=== PATIENT | male | born 1960 | race Hispanic/Latino ===

== ENCOUNTER → 2020-02-08 | Day surgery (SDC) | payer OTHER ==
[2020-02-03 16:48] LABS: BASOPHILS # (AUTO) 0.1 (0.0-0.1); BASOPHILS % 0.8 % (0.0-1.0); EOSINOPHILS # (AUTO) 0.2 (0.0-0.4); HEMATOCRIT 41.2 % (38.2-49.6); HEMOGLOBIN 13.2 g/dL (14.0-18.0); LYMPHOCYTES # (AUTO) 2.7 (1.0-3.2); LYMPHOCYTES % 26.7 % (18.0-39.1); MEAN CORPUSCULAR HEMOGLOBIN 28.3 pg (28-32); MEAN CORPUSCULAR VOLUME 88.4 fL (81-99); MONOCYTES # (AUTO) 0.6 (0.2-0.8); MONOCYTES % 6.4 % (4.4-11.3); NEUTROPHILS # (AUTO) 6.3 (2.1-6.9); NEUTROPHILS % 63.8 % (38.7-80.0); PLATELET COUNT 290 x10e3/uL (140-360); RED BLOOD COUNT 4.66 x10e6/uL (4.3-5.7); RED CELL DISTRIBUTION WIDTH 15.1 % (11.7-14.4)
[~2020-02-08] MED LIST: AMITIZA24 MCG PO; ASMANEX 220 MCG INH; CENTRUM ULTRA1 EAC1 PO; FUROSEMIDE40 MG PO; GLIPIZIDE ER5 MG PO; HYDRALAZINE HCL25 MG PO; LIDOCAINE HCL 2% LOCAL INJ 5 ML SDV VIAL INJ ONE; LIPITOR10 MG PO; LOSARTAN POTAS100 MG PO; MIDAZOLAM HCL 2 MG/2 ML VIAL ONE; MYRBETRIQ50 MG PO; PROPOFOL IV EMULSION 10 MG/ML 20 ML VIAL ONE; TESTOSTERONE60 GM TOP; VASOTEC5 MG PO; VITAMIN D310 MCG PO; Z CALAN PO; Z.0.ALLOPURINOL300 M PO; Z.0.FUROSEMIDE20 MG PO; ZETIA10 MG PO
[2020-02-08 10:10] VITALS: BP 143/71
--- NOTE | 2020-02-08 11:10 | Operative Report ---
DATE OF PROCEDURE: 02/08/2020 SURGEON: Sammy Ching MD PROCEDURE PERFORMED: Esophagogastroduodenoscopy. PREOPERATIVE DIAGNOSES: Abdominal pain and nausea. POSTOPERATIVE DIAGNOSES: Gastric ulcer, bile reflux gastritis, hiatal hernia with a reflux esophagitis. PREOPERATIVE MEDICATIONS: Consisted of general anesthesia. DESCRIPTION OF PROCEDURE: Using [employer] video gastroscope, it was inserted into the patient's oropharynx and advanced to hypopharynx and down to the esophagus. The mucosa present in the esophagus was normal until we got down to the GE junction. This was at 38 cm. There was evidence of a reflux esophagitis above the GE junction. Biopsies were obtained. Right below that, there was a fixed hiatal hernia down from 39 down to 41 cm. The stomach was entered and insufflated with air. The mucosa spreading cardia, fundus, body, and antrum was viewed. There was evidence of a bile reflux gastritis throughout the entire stomach and bile was suctioned out of the stomach. Down at the body of stomach, there was a gastric ulcer. This area was biopsied as well as biopsies obtaining in the antrum and fundus of the stomach, looking for H. Pylori infection. The motility was normal. The pylorus and the duodenal bulb and postbulbar duodenum were found to be within normal limits. The endoscope was then withdrawn back up into the stomach, retroflexed viewing the cardia and fundus below, again the hiatal hernia was seen. The endoscope was placed back in the body of stomach and then slowly withdrawn back up into the esophagus, hypopharynx, oropharynx, and the patient's mouth and the procedure was ended. Sammy Ching MD SAF/MODL /[id number]
== END | disposition home or self-care (01) ==
LOC: ENDO 05:50
PROVIDERS: ATTEND Internal Medicine Gastroenterology
DX: K29.60 Other gastritis without bleeding (principal); K25.9 Gastric ulcer, unspecified as acute or chronic, without hemorrhage or perforation; K21.0 Gastro-esophageal reflux disease with esophagitis; K44.9 Diaphragmatic hernia without obstruction or gangrene; G47.33 Obstructive sleep apnea (adult) (pediatric); J45.909 Unspecified asthma, uncomplicated; I10 Essential (primary) hypertension; E78.5 Hyperlipidemia, unspecified; E11.9 Type 2 diabetes mellitus without complications; Z01.810 Encounter for preprocedural cardiovascular examination; Z01.812 Encounter for preprocedural laboratory examination; Z11.59 Encounter for screening for other viral diseases; Z79.84 Long term (current) use of oral hypoglycemic drugs; Z68.43 Body mass index [BMI] 50.0-59.9, adult
CPT/HCPCS: 36415 ×2; 43239; 82948; 85025; 93005; J2001; J2250; J2704; U0002

== ENCOUNTER → 2020-08-03 | Outpatient (CLI) | payer OTHER ==
[~2020-08-03] MED LIST changes: -LIDOCAINE HCL 2% LOCAL INJ 5 ML SDV VIAL INJ ONE; -MIDAZOLAM HCL 2 MG/2 ML VIAL ONE; -PROPOFOL IV EMULSION 10 MG/ML 20 ML VIAL ONE
== END ==
LOC: DX 21:36 → EDSTATUS 08-08 08:30
PROVIDERS: ATTEND Internal Medicine Gastroenterology
DX: Z01.812 Encounter for preprocedural laboratory examination (principal); Z20.828 Contact with and (suspected) exposure to other viral communicable diseases; R10.84 Generalized abdominal pain
CPT/HCPCS: 93005; U0002

== ENCOUNTER → 2020-09-27 | Day surgery (SDC) | payer OTHER ==
[~2020-09-27] MED LIST changes: +DICYCLOMINE HCL10 MG PO; +FENTANYL CITRATE/PF 100MCG/2 ML INJ ONE; +LIDOCAINE HCL 2% LOCAL INJ 5 ML SDV VIAL INJ ONE; +PROPOFOL IV EMULSION 10 MG/ML 20 ML VIAL ONE
[2020-09-27 12:55] VITALS: BP 141/72
== END | disposition home or self-care (01) ==
LOC: OR 09:25
PROVIDERS: ATTEND Internal Medicine Gastroenterology
DX: R10.84 Generalized abdominal pain (principal); D12.4 Benign neoplasm of descending colon; D12.5 Benign neoplasm of sigmoid colon; R19.5 Other fecal abnormalities; K57.30 Diverticulosis of large intestine without perforation or abscess without bleeding; K21.9 Gastro-esophageal reflux disease without esophagitis; G47.33 Obstructive sleep apnea (adult) (pediatric); E11.9 Type 2 diabetes mellitus without complications; I10 Essential (primary) hypertension; R00.1 Bradycardia, unspecified; J45.909 Unspecified asthma, uncomplicated; E78.5 Hyperlipidemia, unspecified; N32.81 Overactive bladder; R79.89 Other specified abnormal findings of blood chemistry; E66.01 Morbid (severe) obesity due to excess calories; Z01.812 Encounter for preprocedural laboratory examination; Z20.822 Contact with and (suspected) exposure to COVID-19; Z79.84 Long term (current) use of oral hypoglycemic drugs; Z68.43 Body mass index [BMI] 50.0-59.9, adult
CPT/HCPCS: 45385; J2001; J2704; J3010; U0002